=== PATIENT | male | born 1970 | race Caucasian/White ===

== ENCOUNTER 2024-01-20 06:28 | Day surgery (SDC) | payer OTHER, SELFPAY ==
[2024-01-20] VITALS (7 sets, daily range): BP systolic 131–151; BP diastolic 86–96; BMI 30.1
[2024-01-20] MEDS: TYLENOL 1000 MG PO (07:27)
[2024-01-20] MEDS: CELEBREX 200 MG PO (07:27)
[2024-01-20] MEDS: NORMOSOL-R 1000 IV (07:27)
[2024-01-20 07:28] LABS: Glucose - Point of Care 111 mg/dl (70-99)
== END 2024-01-20 12:00 | disposition home or self-care (01) ==
LOC: SDS 06:28
PROVIDERS: ATTENDING PHYSICIAN Specialist
DX: M75.112 Incomplete rotator cuff tear or rupture of left shoulder, not specified as traumatic (principal); M65.9 Synovitis and tenosynovitis, unspecified
CPT/HCPCS: 29827; 29823; 29828; 82962; 93005; C1713

== ENCOUNTER 2024-09-15 04:01 | Emergency (ER) | payer OTHER, SELFPAY ==
[2024-09-15 04:03] VITALS: BP 144/95
--- NOTE | 2024-09-15 04:56 | ED.GENMED ---
History of Present Illness
<DANISH Santacruz - Last Filed: 09/15/24 06:21>
General
Chief Complaint: Cough
Source: patient
Exam Limitations: none
Time Seen by Provider: 09/15/24 04:38
Nursing documentation reviewed up to this point in time: agreed with
History of Present Illness
History of Present Illness:
Patient is a 53yo M who presents to ED w/ cough x4days. He reports reflux sensation when laying. He tastes bile in mouth which triggers coughing. He started coughing up brown/black mucus yesterday. Reports 1 episode yesterday and 2 episodes tonight.
Takes omeprazole PRN, took Friday and last night w/o relief. Notes hx of sinus problems and chronic post nasal drip which leads to coughing up mucus. He reports this is different than normal mucus. He denies any hx of smoking or alcohol use. Denies
any recent illness. Mounjaro dose upped last week. Remede device turned on about 6 days ago.
Past History
<DANISH Santacruz - Last Filed: 09/15/24 06:21>
Past History
ED Past Medical History: None
Social History
Living: with family
Employment: Employed
Review of Systems
<DANISH Santacruz - Last Filed: 09/15/24 06:21>
Review of Systems
Constitutional: Denies fever, fatigue or chills
EENT: Denies sore throat or runny nose
Respiratory: Reports cough; Denies hemoptysis or trouble breathing
Cardiac: Denies chest pain
ABD/GI: Reports constipated; Denies abdominal pain, nausea, vomiting or diarrhea
Neurological: Denies dizzy, headache, weakness or numbness
Phy Exam
<DANISH Satnacruz - Last Filed: 09/15/24 06:21>
General Physical Exam
General Presentation: well appearing
General age: appears stated age
General Skin: warm and dry
General Habitus: normal
General Mental: alert
Cardiovascular Exam
Cardiovascular Exam: regular rate/rhythm, no gallop and no murmur
Pulmonary Exam
Pulmonary Exam: lungs clear, no respiratory distress and no wheezing
Gastrointestinal Exam
Gastrointestinal Exam: normal bowel sounds, non tender, soft and non distended
Neurological Exam
Neurological Exam: alert, oriented x3, no motor deficits, no sensory deficits and speech normal
Course
<Lisa Gallagher, [facility] - Last Filed: 09/15/24 06:21>
Orders/Labs/Results
Orders:
Orders
09/15/24 04:12
EKG [Electrocardiogram (*1)] Urgent
Reason for Study: Abdominal Pain
Other Reason for Exam: reflux
09/15/24 04:13
Crisis Consult Urgent
Reason for Consult: SI
EKG- Treatment ONCE
09/15/24 04:28
1:1 Observation - Suicide/ Violent Behavior As Directed
Comment: SI
09/15/24 04:[address] Non Medication Order As Directed
Physician Order: Allow patient to enter general population and d/c 1:1
Above order entered?: Yes
09/15/24 05:07
CXR2 [CR Chest - 2 Views ] Urgent
Comment:
Reason For Exam: coughing
09/15/24 05:09
CBC/With Diff [Complete Blood Count/With Diff] Urgent
CMP [Comprehensive Metabolic Panel] Urgent
Troponin I Urgent
Abnormal Lab Results
09/15/24
05:09
Glucose 134 H mg/dl
(70-99)
ALT 56 H U/L
(0-50)
09/15/24 05:09
09/15/24 05:09
Vital Signs
Initial and Last Documented VS:
Initial Vital Signs
Temp Pulse Resp BP Pulse Ox
98.7 F 95 20 144/95 95
09/15/24 04:03 09/15/24 04:03 09/15/24 04:03 09/15/24 04:03 09/15/24 04:03
Last Documented Vital Signs
Temp Pulse Resp BP Pulse Ox
98.7 F 95 20 144/95 95
09/15/24 04:03 09/15/24 04:03 09/15/24 04:03 09/15/24 04:03 09/15/24 04:03
<Keith Ann, DO - Last Filed: 09/15/24 06:27>
Orders/Labs/Results
Orders:
Orders
09/15/24 04:12
EKG [Electrocardiogram (*1)] Urgent
Reason for Study: Abdominal Pain
Other Reason for Exam: reflux
09/15/24 04:13
Crisis Consult Urgent
Reason for Consult: SI
EKG- Treatment ONCE
09/15/24 04:28
1:1 Observation - Suicide/ Violent Behavior As Directed
Comment: SI
09/15/24 04:[address] Non Medication Order As Directed
Physician Order: Allow patient to enter general population and d/c 1:1
Above order entered?: Yes
09/15/24 05:07
CXR2 [CR Chest - 2 Views ] Urgent
Comment:
Reason For Exam: coughing
09/15/24 05:09
CBC/With Diff [Complete Blood Count/With Diff] Urgent
CMP [Comprehensive Metabolic Panel] Urgent
Troponin I Urgent
Abnormal Lab Results
09/15/24
05:09
Glucose 134 H mg/dl
(70-99)
ALT 56 H U/L
(0-50)
09/15/24 05:09
09/15/24 05:09
Vital Signs
Initial and Last Documented VS:
Initial Vital Signs
Temp Pulse Resp BP Pulse Ox
98.7 F 95 20 144/95 95
09/15/24 04:03 09/15/24 04:03 09/15/24 04:03 09/15/24 04:03 09/15/24 04:03
Last Documented Vital Signs
Temp Pulse Resp BP Pulse Ox
98.7 F 95 20 144/95 95
09/15/24 04:03 09/15/24 04:03 09/15/24 04:03 09/15/24 04:03 09/15/24 04:03
<DANISH Santacruz - Last Filed: 09/15/24 06:21>
MDM/Problems Addressed
Differential Diagnosis Includes:
Concern for atypical pneumonia, severe GERD, or problem w/ Remede device. Will start w/ basic labs and chest x-ray.
<DNAISH Santacruz - Last Filed: 09/15/24 06:21>
*Critical Care Note
Total Time (30-74mins, 75-104mins- exclusive of procedures): Not Applicable
ED Attending Note
<DANISH Santacruz - Last Filed: 09/15/24 06:21>
-
Portions of this chart may have been created with voice recognition software.� Occasional wrong word or��sound alike� substitutions may have occurred due to the inherent limitations of voice recognition software.
<Keith Ann DO - Last Filed: 09/15/24 06:27>
ED Attending Note
Patient seen and examined by attending physician: Yes
I performed the substantive portion of visit, reviewed & personally made and approve the management plan that is documented in note by myself or BASILIO.: Yes
ED Attending Note:
This a pleasant 53-year-old male presents to the emergency department with cough that has been present for the last 4 days. He states that he does feel reflux with lying flat. He states that he 'tastes bile in his mouth 'and states that he starts
coughing. He does take omeprazole as needed. He took it once on Friday and reported no relief. Denies chest pain or shortness of breath. Patient does have a history of sinusitis and has been coughing up mucus he does not smoke or drink
alcohol. Patient is on Mounjaro which was increased last week.
EKG shows normal sinus rhythm rate of 92 with left axis deviation. Normal intervals, no evidence of acute ischemia present. When compared with previous EKG dated January 20, 2024, there is no obvious interval change noted.
Discharge Plan
Departure
Patient Disposition: Home (Routine Discharge)
Date of Disposition: 09/15/24
Time of Disposition: 06:22
Patient with high blood pressure during this ER visit?: Yes
Condition: Good
Discharge Problem:
GERD (gastroesophageal reflux disease)
Instructions: Cough, Adult (DC), Acid reflux and GERD in adults
Prescriptions:
New
pantoprazole 40 mg tablet,delayed release (DR/EC)
40 mg PO DAILY Qty: 14 0RF
No Action
cyclobenzaprine 10 MG tablet
10 mg PO TID
atorvastatin 40 MG tablet
40 mg PO QPM
pilocarpine HCl 5 MG tablet
5 mg PO BID
gabapentin 600 MG tablet
600 mg PO TID
levothyroxine 75 MCG tablet
75 mcg PO DAILY
oxycodone-acetaminophen 1 EACH tablet
1 tab PO PRN PRN (Reason: pain)
gabapentin 300 MG capsule
300 mg PO TID
eszopiclone [Lunesta] 3 MG tablet
3 mg PO HS
Benazepril Hcl 10 MG Tablet
10 mg PO DAILY
Cholecalciferol (Vitamin D3) [Vitamin D3] 50 MCG Capsule
50 mcg PO NOON
Senna S
50 mg PO DAILY
Sertraline HCl
75 mg PO DAILY
tamsulosin 0.4 mg Capsule
0.4 mg PO DAILY
duloxetine [Cymbalta] 60 mg Capsule,Delayed Release(Dr/Ec)
60 mg PO DAILY
Xtampza ER 18 mg Cap,Sprinkl,Er12hr(Dont Crush)
18 mg PO BID
Trulicity 0.75 mg/0.5 mL Pen Injector
0.75 mg SC QWEEK
Referrals:
PRIVATE,PHYSICIAN [Family Provider] -
Interventions
Interventions:
*Risk Screen - Suicide Last Done: 09/15/24 04:03
*General Assessment Last Done: 09/15/24 04:03
*Neglect/Abuse Screening Last Done: 09/15/24 04:03
ED- Fall Risk Assessment Last Done: 09/15/24 05:14
*ED COVID-19 Vaccine History Last Done: 09/15/24 04:03
ED- Pulmonary Assessment Last Done: 09/15/24 05:15
Discharge Date and Time
Print Language: IRAQI
[2024-09-15 05:11] VITALS: BMI 32.1
[2024-09-15 05:18] LABS: % Basophils 0.4 % (0-2); % Eosinophils 3.6 % (0-6); % Immature Granulocytes 0.4 % (0-0.5); % Lymphocytes 30.9 % (20.5-51.1); % Monocytes 4.8 % (1.7-9.3); % Neutrophils 59.9 % (42.2-75.2); Absolute Eosinophils 0.4 10^3/uL (0-0.7); Absolute Lymphocytes 3.1 10^3/uL (1.2-3.4); Absolute Monocytes 0.5 10^3/uL (0.1-0.6); Hematocrit 42.2 % (39.0-52.0); Mean Corp Hgb Conc. 33.2 g/dL (33.0-37.0); Mean Corpuscular Hgb 28.2 pg (27.0-31.0); Mean Corpuscular Volume 84.9 fL (80.0-94.0); Mean Platelet Volume 9.9 fL (7.4-10.4); Nucleated Red Blood Cells % 0 % (-); Platelet Count 181 10^3/uL (130-400); Red Blood Cell Count 4.97 10^6/uL (4.70-6.10); Red Cell Dist. Width 13.6 % (11.5-14.5)
[2024-09-15 05:49] LABS: ALT (SGPT) 56 U/L (0-50); AST (SGOT) 43 U/L (17-59); Alkaline Phosphatase 75 U/L (38-126); Blood Urea Nitrogen 16 mg/dl (9-20); Calcium 9.4 mg/dl (8.4-10.2); Estimated Creatinine Clearance 94 ml/min; Glucose 134 mg/dl (70-99); Potassium 3.8 mmol/L (3.5-5.1); Sodium 142 mmol/L (135-145); Total Bilirubin 0.8 mg/dl (0.2-1.3); Total Protein 6.9 g/dl (6.3-8.2); eGFR > 60.00
[2024-09-15 05:54] LABS: Troponin I < 0.012 ng/ml
[2024-09-15 05:59] LABS: Albumin 4.5 g/dl (3.5-5.0); Carbon Dioxide 30 mmol/L (22-30); Chloride 98 mmol/L (98-107)
[2024-09-15 06:46] VITALS: BP 138/79
== END 2024-09-15 06:47 | disposition home or self-care (01) ==
LOC: EMR 04:01
PROVIDERS: EMERGENCY PHYSICIAN Student in an Organized Health Care Education/Training Program
DX: K21.9 Gastro-esophageal reflux disease without esophagitis (principal)
CPT/HCPCS: 99283; 71046; 80053; 84484; 85025; 93005

== ENCOUNTER → 2025-09-23 08:45 | Outpatient (REF) | payer OTHER, SELFPAY | LOC: PAVMRI 08:45 | PROVIDERS: ATTENDING PHYSICIAN Orthopaedic Surgery Orthopaedic Surgery of the Spine; FAMILY PHYSICIAN Nurse Practitioner Adult Health | DX: M54.12 Radiculopathy, cervical region (principal); M54.2 Cervicalgia; R20.0 Anesthesia of skin | CPT/HCPCS: 72141 ==